=== PATIENT | male | born 1960 | race Caucasian/White ===

== ENCOUNTER 2018-06-02 09:41 | Emergency (ER) | payer BC, OTHER ==
[~2018-06-02] VITALS: Ht 162.6 cm; Wt 75.0 kg
[2018-06-02 09:43] VITALS: BP 139/93
[2018-06-02] MEDS ORDERED: LIDOcaine 1% 30ml preserv. free vial IJ ONE (10:10)
[2018-06-02] MEDS ORDERED: CLIN300C85 PO (10:18)
[2018-06-02] MEDS ORDERED: LIDOcaine 1% (10mg/ml)w/preservative injection 20ml MDV IJ ONE (10:35)
== END 2018-06-02 10:35 | disposition home or self-care (01) ==
LOC: ER 09:42
DX: L03.114 Cellulitis of left upper limb (principal); L02.512 Cutaneous abscess of left hand; F17.200 Nicotine dependence, unspecified, uncomplicated
CPT/HCPCS: 99283; J2001; J3490